=== PATIENT | male | born 1980 ===

== ENCOUNTER 2017-02-20 16:27 | Emergency (ER) | payer MEDICAID ==
[2017-02-20 16:33] VITALS: O2SAT 98
--- NOTE | 2017-02-20 17:00 | C.PDOC ---
History Of Present Illness 36-year-old male presents to the ED for evaluation of right ankle pain and swelling which began after he tripped and fell this morning. Patient denies taking anything for the pain. He is unable to bear weight on the leg, so presents to the ED for further evaluation. Patient denies head injury/LOC. Time Seen by Provider: 02/20/17 16:35 Chief Complaint (Nursing): Lower Extremity Problem/Injury History Per: Patient History/Exam Limitations: no limitations Onset/Duration Of Symptoms: Hrs Current Symptoms Are (Timing): Still Present Additional History Per: Patient - Ankle/Foot Description Of Injury: Fell Past Medical History Reviewed: Historical Data, Nursing Documentation, Vital Signs Vital Signs: Last Vital Signs Temp 98.5 F 02/20/17 16:31 Pulse 110 H 02/20/17 16:31 Resp 16 02/20/17 16:31 BP 123/80 02/20/17 16:31 Pulse Ox 98 02/20/17 18:26 - Medical History PMH: No Chronic Diseases Surgical History: No Surg Hx Family History: States: Unknown Family Hx - Social History Hx Alcohol Use: Yes Hx Substance Use: No - Immunization History Hx Tetanus Toxoid Vaccination: No Hx Influenza Vaccination: No Hx Pneumococcal Vaccination: No Review Of Systems Musculoskeletal: Positive for: Other (+right ankle pain and swelling ) Neurological: Negative for: Weakness, Numbness Physical Exam - Physical Exam Appears: Non-toxic, No Acute Distress Skin: Normal Color, Warm, Dry Head: Atraumatic, Normacephalic Eye(s): bilateral: Normal Inspection Neck: Normal ROM Chest: Symmetrical Extremity: Normal ROM (limited secondary to pain to right ankle), Tenderness ( medial aspect of right ankle ), No Calf Tenderness, Capillary Refill (less than 2 seconds ), Swelling (moderate to medial aspect of right ankle ) Pulses: Right Dorsalis Pedis: Normal Neurological/Psych: Oriented x3, Normal Speech Gait: Halting ED Course And Treatment - Laboratory Results Result Diagrams: 02/20/17 17:45 02/20/17 17:45 Lab Interpretation: No Acute Changes ECG: Interpreted By Me, Viewed By Me ECG Rhythm: Sinus Rhythm, R BBB (incomplete ) Interpretation Of ECG: Normal Sinus Rhythm at rate 82 bpm. Incomplete right bundle branch block. Left ventricular hypertrophy. Rate From EC O2 Sat by Pulse Oximetry: 98 (on RA) Pulse Ox Interpretation: Normal - Other Rad right ankle XR X-Ray: Interpreted by Me, Viewed By Me, Read By Radiologist Interpretation: PROCEDURE: Right Ankle Radiographs. HISTORY: ankle pain s.p injury. COMPARISON: None. FINDINGS: BONES: A nondisplaced fracture of the medial malleolus is appreciated which appears oblique. JOINTS: There is widening of the medial more up to 5.5 mm. No subluxation or dislocation identified. SOFT TISSUES: Prominent medial malleolar soft tissue edema is identified. OTHER FINDINGS: None. IMPRESSION: Nondisplaced medial malleolar fracture with mild widening of the medial ankle mortise. No dislocation or subluxation. Medical Decision Making Medical Decision Making: Impression: 36y/o male with right ankle pain and swelling Plan: * right ankle XRay * Percocet PO Progress: Right ankle XR ordered and read by me. Evidence of nondisplaced fracture to right medial malleolus. 1653 Spoke with podiatry resident Arturo who will come to ED 172 podiatry resident at bedside is requesting pre-op labs including EKG. He applied posterior splint, and wants patient to followup in clinic tomorrow. On reassessment, patient is resting comfortably. Patient is provided with crutches and instructed on use. Patient is stable for discharge and is advised by podiatry resident to follow up in podiatry clinic with Dr. Zambrano for further evaluation. Disposition Counseled Patient/Family Regarding: Studies Performed, Diagnosis, Need For Followup, Rx Given - Disposition Referrals: [facility] [Outside] [facility] [place] [Outside] Disposition: HOME/ ROUTINE Disposition Time: 18:33 Condition: STABLE Additional Instructions: Your xray shows a fracture. It is very important you follow up in podiatry clinic Tomorrow 02/21/[address] Zambrano for further evaluation. A splint has been applied which is a temporary cast. Do not wet splint, keep out of bath, and consider plastic bag. Take pain medication as needed. Prescriptions: Ibuprofen [Motrin] 600 mg PO Q8 #30 tab oxyCODONE/Acetaminophen [Percocet 5/325 mg Tab] 1 tab PO Q8 PRN #14 tab PRN Reason: Pain, Severe (8-10) Instructions: Ankle Fracture (ED), Crutch Instructions (ED), Splint Care (ED) Forms: [facility] ([place]) - POA Present On Arrival: None - Clinical Impression Clinical Impression: Ankle fracture, right - PA / [employer] / Resident Statement MD/DO has reviewed & agrees with the documentation as recorded. - Scribe Statement The provider has reviewed the documentation as recorded by the Scribe (Jeannie Rocha) All medical record entries made by the Scribe were at my direction and personally dictated by me. I have reviewed the chart and agree that the record accurately reflects my personal performance of the history, physical exam, medical decision making, and the department course for this patient. I have also personally directed, reviewed, and agree with the discharge instructions and disposition.
[2017-02-20] MEDS ORDERED: Oxycodone/Acetaminophen 5/325 mg Tab PO STA (17:01)
[2017-02-20] MEDS ORDERED: Oxycodone/Acetaminophen 5/325 mg Tab ONE (17:07)
--- NOTE | 2017-02-20 17:42 | RAD ---
PROCEDURE: Right Ankle Radiographs. HISTORY: ankle pain s.p injury COMPARISON: None FINDINGS: BONES: A nondisplaced fracture of the medial malleolus is appreciated which appears oblique. JOINTS: There is widening of the medial more up to 5.5 mm. No subluxation or dislocation identified. SOFT TISSUES: Prominent medial malleolar soft tissue edema is identified. OTHER FINDINGS: None. IMPRESSION: Nondisplaced medial malleolar fracture with mild widening of the medial ankle mortise. No dislocation or subluxation.
[2017-02-20 17:48] LABS: BASO % 0.6 % (0.0-2.0); EOS # 0.2 K/uL (0.0-0.7); EOS % 2.3 % (0.0-4.0); HEMATOCRIT 39.5 % (35.0-51.0); LYMPH # 1.3 K/uL (1.0-4.3); LYMPH % 16.8 % (20.0-40.0); MEAN CELL VOLUME 92.7 fL (80.0-94.0); MEAN CORPUSCULAR HGB CONC 34.6 g/dL (33.0-37.0); MONO # 0.7 K/uL (0.0-0.8); MONO % 8.9 % (0.0-10.0); RED CELL DISTRIBUTION WIDTH 13.1 % (11.5-14.5); WHITE BLOOD COUNT 8.1 K/uL (4.8-10.8)
[2017-02-20 17:57] LABS: CHLORIDE 99 mmol/L (98-107); POTASSIUM 4.2 mmol/L (3.6-5.2); SODIUM 142 mmol/L (132-148)
[2017-02-20 17:59] LABS: ALB/GLOB RATIO 1.1 (1.0-2.1); ALKALINE PHOSPHATASE 69 U/L (38-126); AST/SGOT 27 U/L (17-59); BILIRUBIN,TOTAL 0.5 mg/dL (0.2-1.3); CARBON DIOXIDE 26 mmol/L (22-30); GFR AFRICAN-AMERICAN > 60; TOTAL PROTEIN 8.1 g/dL (6.3-8.3)
[2017-02-20 18:00] LABS: ALT/SGPT 22 U/L (21-72); BLOOD UREA NITROGEN 12 mg/dL (9-20); CALCIUM 9.8 mg/dl (8.6-10.4); GLUCOSE,RANDOM 87 mg/dL (75-110)
[2017-02-20 18:45] VITALS: BP 129/75; PULSE 85; RESP 18; TEMP 98.2
[2017-02-20 18:58] LABS: RBC URINE 1 /hpf (0-3); URINE BACTERIA RARE (<OCC); URINE BILIRUBIN NEGATIVE (NEGATIVE); URINE BLOOD NEGATIVE (NEGATIVE); URINE COLOR Yellow (YELLOW); URINE GLUCOSE (UA) NORMAL (Normal); URINE KETONE TRACE mg/dL (NEGATIVE); URINE LEUKOCYTE ESTERASE NEG Leu/uL (Negative); URINE PROTEIN NEGATIVE (NEGATIVE); URINE UROBILINOGEN NORMAL mg/dL (0.2-1.0); WBC URINE 5 /hpf (0-5)
--- NOTE | 2017-02-20 19:12 | CP.PCM.CON ---
History of Present Illness - History of Present Illness History of Present Illness: 36 yo male patient with no significant PMHx was seen at bedside Ed this afternoon concerning pain and swelling to right ankle after stepping off of his bed yesterday morning. Patient denies of any trauma other than stepping out of the bed in the morning. Patient denies taking anything for the pain. He is unable to bear weight to the right lower extremity due to pain. Patient is present with his mother to the ED. He denies of any N/V/F/C or SOB today Review of Systems - Constitutional Constitutional: As Per HPI Past Patient History - Infectious Disease Hx of Infectious Diseases: None - Past Social History Smoking Status: Never Smoked - PSYCHIATRIC Hx Substance Use: No - SURGICAL HISTORY Hx Surgeries: No - ANESTHESIA Hx Anesthesia: No Meds Home Medications: Home Medication List Medication Instructions Recorded Confirmed Type Ibuprofen [Motrin] 600 mg PO Q8 #30 tab 02/20/17 Rx oxyCODONE/Acetaminophen [Percocet 1 tab PO Q8 PRN #14 tab 02/20/17 Rx 5/325 mg Tab] Allergies/Adverse Reactions: Allergies Allergy/AdvReac Type Severity Reaction Status Date / Time No Known Allergies Allergy Verified 02/20/17 16:31 Physical Exam - Constitutional Appears: Well, Non-toxic, No Acute Distress - Extremities Exam Additional comments: Right lower extremity exam DERM: No open wound noted. Slight ecchymosis noted to luz-medial aspect of right ankle. Mild erythema noted around the right ankle. No drainage noted, No PTB. No sign of acute infection is noted. VASC: Moderate swelling noted to the right ankle. Skin warm to touch. Palpable DP and PT noted 2/4 bilaterally. PAINTER BARREL less than 3 seconds noted to all digits b/l ORTHO: Pain on palpation to right ankle, medially. Decreased ROM noted to right ankle secondary to guarding NEURO: Gross sensation intact - Neurological Exam Neurological exam: Alert, Oriented x3 - Psychiatric Exam Psychiatric exam: Normal Affect, Normal Mood - Skin Skin Exam: Normal Color Results - Vital Signs Recent Vital Signs: Last Vital Signs Temp 98.2 F 02/20/17 18:44 Pulse 85 02/20/17 18:44 Resp 18 02/20/17 18:44 BP 129/75 02/20/17 18:44 Pulse Ox 98 02/20/17 18:44 - Labs Result Diagrams: 02/20/17 17:45 02/20/17 17:45 Labs: Laboratory Results - last 24 hr 02/20/17 02/20/17 02/20/17 17:45 17:45 17:45 WBC 8.1 RBC 4.26 L Hgb 13.6 Hct 39.5 MCV 92.7 MCH 32.0 H MCHC 34.6 RDW 13.1 Plt Count 292 MPV 7.0 L Neut % (Auto) 71.4 Lymph % (Auto) 16.8 L [place] % (Auto) 8.9 Eos % (Auto) 2.3 Baso % (Auto) 0.6 Neut # 5.8 Lymph # 1.3 [place] # 0.7 Eos # 0.2 Baso # 0.0 PT 11.0 INR 1.0 APTT 29 Sodium 142 Potassium 4.2 Chloride 99 Carbon Dioxide 26 Anion Gap 21 H BUN 12 Creatinine 0.7 L Est GFR ( Amer) > 60 Est GFR (Non-Af Amer) > 60 Random Glucose 87 Calcium 9.8 Total Bilirubin 0.5 AST 27 ALT 22 Alkaline Phosphatase 69 Total Protein 8.1 Albumin 4.4 Globulin 3.8 Albumin/Globulin Ratio 1.1 Urine Color Urine Clarity Urine pH Ur Specific [place] Urine Protein Urine Glucose (UA) Urine Ketones Urine Blood Urine Nitrate Urine Bilirubin Urine Urobilinogen Ur Leukocyte Esterase Urine WBC (Auto) Urine RBC (Auto) Ur Squamous Epith Cells Urine Bacteria Blood Type Antibody Screen 02/20/17 02/20/17 17:45 18:29 WBC RBC Hgb Hct MCV MCH MCHC RDW Plt Count MPV Neut % (Auto) Lymph % (Auto) [place] % (Auto) Eos % (Auto) Baso % (Auto) Neut # Lymph # [place] # Eos # Baso # PT INR APTT Sodium Potassium Chloride Carbon Dioxide Anion Gap BUN Creatinine Est GFR ( Amer) Est GFR (Non-Af Amer) Random Glucose Calcium Total Bilirubin AST ALT Alkaline Phosphatase Total Protein Albumin Globulin Albumin/Globulin Ratio Urine Color Yellow Urine Clarity Clear Urine pH 5.0 Ur Specific [place] 1.025 Urine Protein Negative Urine Glucose (UA) Normal Urine Ketones Trace Urine Blood Negative Urine Nitrate Negative Urine Bilirubin Negative Urine Urobilinogen Normal Ur Leukocyte Esterase Neg Urine WBC (Auto) 5 Urine RBC (Auto) 1 Ur Squamous Epith Cells 1 Urine Bacteria Rare Blood Type B POSITIVE Antibody Screen Negative Assessment & Plan - Assessment and Plan (Free Text) Assessment: 36 yo male patient presents with closed, non-displaced, complete right Medial malleolus fracture Plan: Patient was seen, evaluated at bedside ED Discussed in detail with attending Dr. Zambrano Labs and vitals reviewed Xray of right ankel reviewed: Complete, non-displaced fracture of medial malleolus noted Xray of high tibfib negative for signs consistent with acute fracture compression dressing applied to right lower extremity Patient to be non-weight bearing to right with crutches Patient to follow up with Dr. Zambrano at [facility] on Tuesday Rx Pain medication per ED Chest Xray, EKG, Coags, CBC, BMP ordered in the ED for possible surgery of ORIF of right ankle
--- NOTE | 2017-02-21 09:46 | RAD ---
HISTORY: pre-op COMPARISON: No prior. TECHNIQUE: Chest PA and lateral FINDINGS: LUNGS: Mild hyperinflation. No acute infiltrates. PLEURA: There may be some minor biapical pleural thickening no significant pleural effusion identified. No pneumothorax apparent. CARDIOVASCULAR: Normal. OSSEOUS STRUCTURES: No significant abnormalities. VISUALIZED UPPER ABDOMEN: Normal. OTHER FINDINGS: None. IMPRESSION: Mild hyperinflation. No acute infiltrates.
--- NOTE | 2017-02-21 10:36 | RAD ---
PROCEDURE: Radiographs of the right tibia and fibula. HISTORY: right ankle fx COMPARISON: Correlation made with concurrent radiographs right ankle TECHNIQUE: Frontal and lateral views obtained. FINDINGS: BONES: Previously noted oblique fracture traversing the medial malleolus is less well seen on this exam as compared to dedicated ankle radiographs. No other fractures are identified JOINT SPACES: Previously described widening of the medial ankle mortise also poorly seen on this exam. OTHER FINDINGS: None. IMPRESSION: Fracture medial malleolus and mild widening of the medial ankle mortise poorly seen on this study. Please refer to dedicated radiographs of the right ankle. No other fractures are identified.
--- NOTE | 2017-02-22 19:43 | CARD ---
APPROVED REPORT EKG Measurement Heart [id number] <Conclusion> Normal sinus rhythm Possible Left atrial enlargement Incomplete right bundle branch block Left ventricular hypertrophy Abnormal ECG
== END 2017-02-20 18:45 | disposition home or self-care (01) ==
LOC: C.ER 16:27
DX: S82.54XA Nondisplaced fracture of medial malleolus of right tibia, initial encounter for closed fracture (principal); W01.0XXA Fall on same level from slipping, tripping and stumbling without subsequent striking against object, initial encounter